=== PATIENT | female | born 1980 | race Hispanic/Latino ===

== ENCOUNTER 2018-06-18 10:08 | Outpatient (CLI) | payer OTHER ==
--- NOTE | 2018-06-18 12:06 | XRay Report ---
BILATERAL KNEES, 2 VIEWS History: Knee pain. Findings: Normal bone mineralization. No acute osseous findings or joint pathology is identified. Normal soft tissues. Impression: Normal bilateral knees.
== END 2018-06-18 10:09 | disposition home or self-care (01) ==
LOC: XRAY 10:08
PROVIDERS: ATTEND Internal Medicine
DX: R22.43 Localized swelling, mass and lump, lower limb, bilateral (principal); M19.90 Unspecified osteoarthritis, unspecified site; Z88.0 Allergy status to penicillin; Z88.6 Allergy status to analgesic agent